=== PATIENT | female | born 1955 | race Caucasian/White ===

== ENCOUNTER → 2017-06-07 | Outpatient (CLI) | payer BC | END | disposition home or self-care (01) | LOC: C.LABSPEC 11:18 | PROVIDERS: ATTEND Urology | DX: N39.41 Urge incontinence (principal); R35.0 Frequency of micturition; N39.0 Urinary tract infection, site not specified ==

== ENCOUNTER → 2017-09-06 | Outpatient (CLI) | payer BC | END | disposition home or self-care (01) | LOC: C.LABSPEC 11:06 | PROVIDERS: ATTEND Urology | DX: N39.41 Urge incontinence (principal); N39.0 Urinary tract infection, site not specified; R35.0 Frequency of micturition ==